=== PATIENT | male | born 1975 | race Caucasian/White ===

== ENCOUNTER 2023-07-10 07:27 | Emergency (ER) | payer BC, SELFPAY ==
[2023-07-10 07:30] VITALS: BP 169/83; PULSE 84; RESP 18; TEMP 36.6; O2SAT 94; BMI 29.8
--- NOTE | 2023-07-10 09:10 | XR_ITS ---
Patient: RAD CARDENAS Facility:?[facility] Patient ID:?[id number] Site Patient ID:?[id number]. Site :?[id number] Study:?XRay-Extremity Right FOOT-07/10/2023 9:48:57 AM Ordering Physician:MONIKA Final Report: Indication: Right foot pain at the 4th to 5th metatarsal for 1 week. No known injury Technique: Three views Comparison: None Findings/Impression: Bones: No evidence of fracture. Joint spaces: Unremarkable. Soft tissues: Forefoot soft tissue swelling. Dictated by Stone Ramirez MD @ 07/10/2023 9:58:10 AM Signed by:?Stone Ramirez MD @07/10/2023 9:58:10 AM (Electronic Signature)
--- NOTE | 2023-07-10 10:00 | ED_ITS ---
HPI - General Adult General Chief complaint: Extremity Pain/Injury, Lower Stated complaint: R foot pain Time Seen by Provider: 07/10/23 07:48 History of Present Illness HPI narrative: This 48-year-old male comes in reporting pain in his right foot that began about a week ago. He does not report any injury event or overuse activity. He states that he does have a history of gout but this caused pain and swelling usually in the MP he joint of the great toe. His pain is more located over the 4th and 5th metatarsals. He does have some erythema in this area but no significant swelling. He is able to ambulate but does so with a limp. Related Data Home Medications Medication Instructions Recorded Confirmed amlodipine 10 mg tablet 10 mg PO DAILY 07/10/23 07/10/23 atorvastatin 10 mg tablet 10 mg PO QPM 07/10/23 07/10/23 citalopram 20 mg tablet 20 mg PO QAM 07/10/23 07/10/23 losartan 25 mg tablet 25 mg PO DAILY 07/10/23 07/10/23 Previous Rx's Medication Instructions Recorded ketorolac 10 mg tablet 10 mg PO Q8H 5 days #15 tabs 07/10/23 methylprednisolone 4 mg tablets in See Rx Instructions PO .COMPLEX 07/10/23 a dose pack (Medrol (Colten)) #21 ea Allergies Allergy/AdvReac Type Severity Reaction Status Date / Time No Known Drug Allergies Allergy Verified 07/10/23 07:32 Review of Systems Status of ROS: Reports: 10 or more systems reviewed and unremarkable except as noted in History and below Narrative: Constitutional: No fevers, no weight gain or loss. Eyes: No discharge. No vision changes. HENT: No congestion, no sore throat, no ear pain. Cardiovascular: No chest pain, no palpitations. Respiratory: No shortness of breath, no wheezes, no cough. Gastrointestinal: No abdominal pain, no vomiting, no diarrhea. Genitourinary: No dysuria, no hematuria. Musculoskeletal: Right foot pain as described above. Skin: No rashes, no pruritis. Neurological: No dizziness, weakness, sensory change, speech change. Endo/Heme/Allergies: No bruising or bleeding. No polydipsia. Pysch: no suicidality, no anxiety, no insomnia. All other systems reviewed and are negative. PFSH PFSH Social History Smoking Status: Unknown if ever smoked Exam Narrative: Exam Narrative: Constitutional: Well-developed, well-nourished, no acute distress. HEENT: Normocephalic, atraumatic. Neck: Normal range of motion. Nontender. Supple. Heart: Intact distal pulses. Lungs: No chest discomfort. No wheezes, rhonchi, or rales. Abdomen: Nontender. Back: Normal range of motion. Extremities: Normal range of motion. He is able to move his toes on his right foot without much discomfort. He does have some erythema overlying the 4th and 5th metatarsals at the midshaft. Skin: Intact. No rash. Warm. No erythema or pallor. Neurologic: No altered sensation. No weakness. Alert and oriented. Psychiatric: No suicidality. No anxiety or depression. No insomnia. Nursing notes and vitals signs are reviewed. Const: Vital Signs, click to edit/add: Vital Signs - 24 hr 07/10/23 07:30 Temperature 97.8 F Pulse Rate [Right Pulse Oximeter] 84 Respiratory Rate 18 Blood Pressure [Ri ght Upper Arm] 169/83 H Pulse Oximetry 94 Oxygen Delivery Me thod Room Air Course Vital Signs Vital signs: Initial Vital Signs Temperature 97.8 F 07/10/23 07:30 Temperature Source Temporal Artery Scan 07/10/23 07:30 Pulse Rate 84 07/10/23 07:30 Respiratory Rate 18 07/10/23 07:30 Blood Pressure 169/83 H 07/10/23 07:30 Blood Pressure Mean 111 H 07/10/23 07:30 Pulse Oximetry 94 07/10/23 07:30 Oxygen Delivery Method Room Air 07/10/23 07:30 Vital Signs Temperature 97.8 F 07/10/23 07:30 Pulse Rate 84 07/10/23 07:30 Respiratory Rate 18 07/10/23 07:30 Blood Pressure 169/83 H 07/10/23 07:30 Pulse Oximetry 94 07/10/23 07:30 Oxygen Delivery Method Room Air 07/10/23 07:30 Temperature 97.8 F 07/10/23 07:30 Pulse Rate 84 07/10/23 07:30 Respiratory Rate 18 07/10/23 07:30 Blood Pressure 169/83 H 07/10/23 07:30 Pulse Oximetry 94 07/10/23 07:30 Oxygen Delivery Method Room Air 07/10/23 07:30 Medical Decision Making [facility] Narrative Medical decision making narrative: This patient comes in with report of right foot pain as described above. He does have a history of gout but these symptoms are not typical for his experience of gout. He does not report any injury event or strenuous activity. An x-ray of the right foot is obtained and by my review there is no sign of fracture or malalignment. This patient has a history of gout but his symptoms are not so typical for a gout flare up. I did prescribe a Medrol Dosepak and Toradol which can help with his symptoms and if there is a gout flare occurring this would also be treated. The patient is agreeable to this plan. Discharge Plan Discharge Clinical Impression: Acute foot pain Patient Disposition: Home, Self-Care Condition: Unchanged Additional Instructions: Take medication as prescribed. Increase activity as tolerated. Follow up with MD return if worsening. Prescriptions: New ketorolac 10 mg tablet 10 mg PO Q8H 5 Days Qty: 15 0RF methylprednisolone [Medrol (Colten)] 4 mg tablets,dose pack See Rx Instructions .ROUTE .COMPLEX Qty: 21 0RF Rx Instructions: orally per package directions No Action atorvastatin 10 mg tablet 10 mg PO QPM citalopram 20 mg tablet 20 mg PO QAM amlodipine 10 mg tablet 10 mg PO DAILY losartan 25 mg tablet 25 mg PO DAILY Follow Up/Referrals: Titi Underwood MD [Primary Care Provider] - Stand Alone Forms: [employer] Info Instructions
== END 2023-07-10 10:20 | disposition home or self-care (01) ==
PROVIDERS: Emergency Provider Emergency Medicine Emergency Medical Services; PCP Family Medicine
DX: M79.671 Pain in right foot (principal)
CPT/HCPCS: 73630; 99283; 99284

== ENCOUNTER 2023-09-01 19:18 | Emergency (ER) | payer BC, SELFPAY ==
[2023-09-01 19:23] VITALS: BP 155/74; PULSE 95; RESP 18; TEMP 37.5; O2SAT 99; BMI 29.8
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
[2023-09-01] MEDS: TETANUS/DIPHTH/PERTUSSIS 0.5 ML SYRINGE IM (20:47)
[2023-09-01 20:58] VITALS: BP 145/74; PULSE 89; RESP 18; TEMP 36.7; O2SAT 99
[2023-09-01 21:02] VITALS: BP 145/74; PULSE 89; RESP 18; TEMP 36.7
[2023-09-01] MEDS: LIDOCAINE 1 % PF 30 ML INJECTION (21:02)
== END 2023-09-01 21:02 | disposition home or self-care (01) ==
PROVIDERS: Emergency Provider Family Medicine; PCP Family Medicine
DX: S61.411A Laceration without foreign body of right hand, initial encounter (principal); W39.XXXA Discharge of firework, initial encounter
CPT/HCPCS: 12001; 73130; 90471; 90715; 99283; 99284; J2001